=== PATIENT | male | born 1965 | race Caucasian/White ===

== ENCOUNTER 2024-02-17 11:27 | Emergency (ER) | payer MEDICAID ==
[~2024-02-17] VITALS: Ht 167.6 cm; Wt 86.2 kg
[2024-02-17] MEDS ORDERED: CEFTRIAXONE 500 MG VIAL ONE (12:27)
[2024-02-17] MEDS ORDERED: AZITHROMYCIN 250 MG TABLET ONE (12:28)
[2024-02-17] MEDS ORDERED: LIDOCAINE 1% INJ 50 ML MDV IJ ONE (12:29)
[2024-02-17] MEDS: CEFTRIAXONE 500 MG VIAL IM ONE (12:40)
[2024-02-17] MEDS: AZITHROMYCIN 250 MG TABLET PO ONE (12:40)
[2024-02-17 13:04] VITALS: BP 140/88; TEMP 98; O2SAT 95
[2024-02-19 07:06] LABS: CHLAMYDIA TRACHOMATIS NAA Negative (Negative)
[2024-02-19 11:08] LABS: NEISSERIA GONORRHOEAE NAA Positive (Negative)
== END 2024-02-17 13:07 | disposition home or self-care (01) ==
LOC: ER 11:42
DX: A54.09 Other gonococcal infection of lower genitourinary tract (principal); R30.0 Dysuria; R36.9 Urethral discharge, unspecified; E11.9 Type 2 diabetes mellitus without complications
CPT/HCPCS: 99283; 96372; 87491; 87591; J3490; J0696

== ENCOUNTER 2024-06-03 19:07 | Emergency (ER) | payer MEDICAID ==
[~2024-06-03] VITALS: Ht 172.7 cm; Wt 77.1 kg
[2024-06-03 20:44] LABS: BASOPHILS % (AUTO) 0.4 % (0.0-2.0); EOSINOPHILS # (AUTO) 0.1 K/uL (0.0-0.7); EOSINOPHILS % (AUTO) 2.2 % (0.0-6.0); HEMATOCRIT 41 % (39-51); HEMOGLOBIN 14.5 g/dL (13.5-17.5); LYMPHOCYTES # (AUTO) 0.8 K/uL (0.8-4.8); LYMPHOCYTES % (AUTO) 29.1 % (20.0-44.0); MEAN CORPUSCULAR HEMOGLOBIN 32 PG (26.0-33.0); MEAN CORPUSCULAR HGB CONC 36 g/dl (31.0-36.0); MEAN CORPUSCULAR VOLUME 89 fL (80-96); MONOCYTES # (AUTO) 0.3 K/uL (0.1-1.30); MONOCYTES % (AUTO) 11.8 % (2.0-12.0); NEUTROPHILS # (AUTO) 1.5 K/uL (1.8-8.9); NEUTROPHILS % (AUTO) 56.5 % (43.0-81.0); RED BLOOD CELL COUNT(AUTO) 4.55 MIL/uL (4.5-6.0); RED CELL DISTRIBUTION WIDTH 14.4 % (11.5-15.0); WHITE BLOOD COUNT (AUTO) 2.7 K/uL (4.3-11.0)
[2024-06-03 21:02] LABS: CALCIUM, SERUM 8.4 mg/dL (8.5-10.1); CREATININE 0.7 mg/dL (0.6-1.3); POTASSIUM 3.7 mmol/L (3.5-5.1)
[2024-06-03 21:03] LABS: APPEARANCE,URINE CLEAR (CLEAR); BILIRUBIN,URINE 1+ (NEGATIVE); BLOOD, URINE 1+ Ery/uL (NEGATIVE); COLOR,URINE DARK YELLOW (YELLOW); KETONES,URINE NEGATIVE (NEGATIVE); LEUKOCYTE ESTERASE ,URINE 1+ (NEGATIVE); NITRITE, URINE POSITIVE (NEGATIVE); PH,URINE 5.5 (5.0-8.0); PROTEIN,URINE NEGATIVE (NEGATIVE); UGLUCOSE 3+ mg/dL (NEGATIVE)
[2024-06-03 21:13] LABS: ALBUMIN 3.1 g/dL (3.4-5.0); BILIRUBIN,DIRECT 1.3 mg/dL (0.0-0.2); BILIRUBIN,TOTAL 7.1 mg/dL (0.2-1.0); TOTAL PROTEIN, SERUM 8.1 g/dL (6.4-8.2)
[2024-06-03 21:20] LABS: PLATELET COUNT (AUTO) 40 K/uL (150-450)
[2024-06-03 21:32] LABS: ADD URINE CULTURE YES; BACTERIA,URINE 1+ /HPF (None Seen)
[2024-06-03] MEDS ORDERED: PANTOPRAZOLE 40 MG VIAL ONE (21:32)
[2024-06-03 21:33] LABS: MUCUS,URINE Few /LPF (None Seen); SQUAMOUS EPITHELIAL CELL,UR 0-2 /HPF (None Seen)
[2024-06-03] MEDS: PANTOPRAZOLE 40 MG VIAL IV ONE (21:41)
[2024-06-03] MEDS ORDERED: CEFTRIAXONE 1GM BAG (ER ONLY) 50 ML IV ONE (21:47)
[2024-06-03] MEDS ORDERED: ONDANSETRON HCL/PF 4 MG/2 ML VIAL ONE (21:47)
[2024-06-03] MEDS ORDERED: MORPHINE SULFATE INJ 2 MG/ML DISP.SYRIN ONE (21:47)
[2024-06-03] MEDS: CEFTRIAXONE 1GM BAG (ER ONLY) 1 GM/50 ML PIGGYBACK IV ONE (21:54)
[2024-06-03] MEDS: MORPHINE SULFATE INJ 2 MG/ML DISP.SYRIN IV ONE (21:54)
[2024-06-03] MEDS: ONDANSETRON HCL/PF 4 MG/2 ML VIAL IVP ONE (21:55)
[2024-06-03 22:11] LABS: EOSINOPHILS % (MANUAL) 3 % (0-4); LYMPHOCYTES % (MANUAL) 34 % (16-48); MONOCYTES % (MANUAL) 8 % (0-11.0); NEUTROPHILS % (MANUAL) 55 (42-76); PLATELET ESTIMATE DECREASED
[2024-06-03 22:33] LABS: ALBUMIN 2.7 g/dL (3.4-5.0); BILIRUBIN,DIRECT 1.1 mg/dL (0.0-0.2); BILIRUBIN,TOTAL 6.3 mg/dL (0.2-1.0); TOTAL PROTEIN, SERUM 7.2 g/dL (6.4-8.2)
[2024-06-03] MEDS ORDERED: CEPH500T PO (23:38)
[2024-06-03] MEDS ORDERED: HYDR-4303 PO (23:38)
[2024-06-03 23:56] VITALS: BP 148/84; TEMP 98.6; O2SAT 99
== END 2024-06-03 23:57 | disposition home or self-care (01) ==
LOC: ER 19:10
DX: K74.60 Unspecified cirrhosis of liver (principal); N39.0 Urinary tract infection, site not specified; R10.31 Right lower quadrant pain; R10.32 Left lower quadrant pain; R10.11 Right upper quadrant pain; R10.12 Left upper quadrant pain; E11.9 Type 2 diabetes mellitus without complications
CPT/HCPCS: 99285; 96365; 96375; 93005; 71045; 74176; 85025; 80048; 83690 ×2; 80076 ×2; 85007; 81001; 36415; J2405; J2470; A4223; J2270; J0696

== ENCOUNTER 2024-06-28 08:50 | Emergency (ER) | payer MEDICAID ==
[~2024-06-28] VITALS: Ht 165.1 cm; Wt 68.0 kg
[~2024-06-28 08:50] MED LIST: CEPH500T PO; HYDR-4303 PO
[2024-06-28] MEDS ORDERED: KETOROLAC TROMETHAMINE 15 MG/ML VIAL ONE (09:56)
[2024-06-28] MEDS ORDERED: LIDOCAINE 5% (PATCH) 1 EA PATCH TP ONE (09:56)
[2024-06-28] MEDS ORDERED: HYDROCODONE/APAP 5/325MG TABLET ONE (09:57)
[2024-06-28] MEDS ORDERED: CYCLOBENZAPRINE 10 MG TABLET ONE (09:57)
[2024-06-28] MEDS: KETOROLAC TROMETHAMINE 15 MG/ML VIAL IM ONE (10:04)
[2024-06-28] MEDS: CYCLOBENZAPRINE 10 MG TABLET PO ONE (10:04)
[2024-06-28] MEDS: LIDOCAINE 5% (PATCH) 1 EA PATCH TP SCH (10:04)
[2024-06-28] MEDS: HYDROCODONE/APAP 5/325MG TABLET PO ONE (10:04)
[2024-06-28] MEDS ORDERED: CYCL5TAB PO (10:14)
[2024-06-28] MEDS ORDERED: METH4TAB17 PO (10:14)
[2024-06-28] MEDS ORDERED: LIDO30AD10 TP (10:14)
[2024-06-28] MEDS ORDERED: IBUP-1955 PO (10:14)
[2024-06-28] MEDS ORDERED: HYDR-4303 PO (10:14)
[2024-06-28 10:22] VITALS: BP 111/64; TEMP 98.6; O2SAT 98
== END 2024-06-28 10:22 | disposition home or self-care (01) ==
LOC: ER 08:53
DX: G89.29 Other chronic pain (principal); M54.59 Other low back pain; E11.9 Type 2 diabetes mellitus without complications; F10.20 Alcohol dependence, uncomplicated; Z87.19 Personal history of other diseases of the digestive system
CPT/HCPCS: 99284; 96372; J1885

== ENCOUNTER 2024-09-29 15:42 | Emergency (ER) | payer MEDICAID ==
[~2024-09-29] VITALS: Ht 165.1 cm; Wt 68.0 kg
[~2024-09-29 15:42] MED LIST changes: +CYCL5TAB PO; +IBUP-1955 PO; +LIDO30AD10 TP; +METH4TAB17 PO
[2024-09-29 16:50] LABS: BASOPHILS % (AUTO) 0.5 % (0.0-2.0); EOSINOPHILS % (AUTO) 1.2 % (0.0-6.0); HEMATOCRIT 39 % (39-51); HEMOGLOBIN 13.7 g/dL (13.5-17.5); LYMPHOCYTES # (AUTO) 0.9 K/uL (0.8-4.8); LYMPHOCYTES % (AUTO) 28.2 % (20.0-44.0); MEAN CORPUSCULAR HEMOGLOBIN 32 PG (26.0-33.0); MEAN CORPUSCULAR HGB CONC 35 g/dl (31.0-36.0); MEAN CORPUSCULAR VOLUME 90 fL (80-96); MONOCYTES # (AUTO) 0.4 K/uL (0.1-1.30); MONOCYTES % (AUTO) 12.4 % (2.0-12.0); NEUTROPHILS # (AUTO) 1.8 K/uL (1.8-8.9); NEUTROPHILS % (AUTO) 57.7 % (43.0-81.0); RED BLOOD CELL COUNT(AUTO) 4.35 MIL/uL (4.5-6.0); RED CELL DISTRIBUTION WIDTH 13.6 % (11.5-15.0); WHITE BLOOD COUNT (AUTO) 3.2 K/uL (4.3-11.0)
[2024-09-29 16:57] LABS: CALCIUM, SERUM 8.6 mg/dL (8.5-10.1); CREATININE 0.7 mg/dL (0.6-1.3); PLATELET COUNT (AUTO) 41 K/uL (150-450); POTASSIUM 3.7 mmol/L (3.5-5.1)
[2024-09-29 17:03] LABS: ALBUMIN 3.4 g/dL (3.4-5.0); BILIRUBIN,DIRECT 0.5 mg/dL (0.0-0.2); BILIRUBIN,TOTAL 3.5 mg/dL (0.2-1.0); TOTAL PROTEIN, SERUM 7.1 g/dL (6.4-8.2)
[2024-09-29] MEDS ORDERED: MAG HYDROX/AL HYDROX/SIMETH 30 ML UDC ONE (17:26)
[2024-09-29] MEDS ORDERED: LIDOCAINE VISCOUS 2% UD 15 ML UDC ONE (17:27)
[2024-09-29] MEDS ORDERED: KETOROLAC TROMETHAMINE INJ 30 MG/ML VIAL ONE (17:27)
[2024-09-29] MEDS: KETOROLAC TROMETHAMINE INJ 30 MG/ML VIAL IM ONE (17:33)
[2024-09-29] MEDS: MAG HYDROX/AL HYDROX/SIMETH 30 ML UDC PO ONE (17:33)
[2024-09-29] MEDS: LIDOCAINE VISCOUS 2% UD 15 ML UDC MM ONE (17:34)
[2024-09-29 17:35] LABS: EOSINOPHILS % (MANUAL) 2 % (0-4); LYMPHOCYTES % (MANUAL) 33 % (16-48); MONOCYTES % (MANUAL) 11 % (0-11.0); NEUTROPHILS % (MANUAL) 54 (42-76)
[2024-09-29 17:36] LABS: ANISOCYTOSIS 1+; PLATELET ESTIMATE DECREASED
[2024-09-29] MEDS ORDERED: IBUP-1955 PO (18:08)
[2024-09-29] MEDS ORDERED: PANT40TA2 PO (18:08)
[2024-09-29 18:47] VITALS: BP 150/80; TEMP 98.2; O2SAT 100
== END 2024-09-29 18:48 | disposition home or self-care (01) ==
LOC: ER 15:44
DX: G89.29 Other chronic pain (principal); M54.59 Other low back pain; D69.6 Thrombocytopenia, unspecified; E11.9 Type 2 diabetes mellitus without complications; F10.10 Alcohol abuse, uncomplicated; K70.9 Alcoholic liver disease, unspecified; K85.90 Acute pancreatitis without necrosis or infection, unspecified
CPT/HCPCS: 99283; 96372; 85025; 80048; 83690; 80076; 36415; 85007; J1885

== ENCOUNTER 2024-10-09 19:08 | Emergency (ER) | payer MEDICAID ==
[~2024-10-09 19:08] MED LIST changes: +PANT40TA2 PO
[2024-10-10] MEDS ORDERED: ONDA4TAB5 PO (12:32)
[2024-10-10] MEDS ORDERED: FAMO-131 PO (12:32)
== END 2024-10-09 20:35 | disposition left against medical advice (07) ==
LOC: ER 19:10
DX: R10.9 Unspecified abdominal pain (principal); Z53.21 Procedure and treatment not carried out due to patient leaving prior to being seen by health care provider

== ENCOUNTER 2024-10-10 09:30 | Emergency (ER) | payer MEDICAID ==
[~2024-10-10] VITALS: Ht 167.6 cm; Wt 77.1 kg
[2024-10-10] MEDS ORDERED: ONDANSETRON HCL/PF 4 MG/2 ML VIAL ONE (10:08)
[2024-10-10] MEDS ORDERED: MORPHINE SULFATE INJ 4 MG/ML DISP.SYRIN ONE (10:08)
[2024-10-10] MEDS ORDERED: LIDOCAINE VISCOUS 2% UD 15 ML UDC ONE (10:08)
[2024-10-10] MEDS ORDERED: MAG HYDROX/AL HYDROX/SIMETH 30 ML UDC ONE (10:08)
[2024-10-10] MEDS ORDERED: FAMOTIDINE/PF INJ 20 MG/2 ML VIAL IV ONE (10:09)
[2024-10-10] MEDS: LIDOCAINE VISCOUS 2% UD 15 ML UDC MM ONE (10:11)
[2024-10-10] MEDS: MAG HYDROX/AL HYDROX/SIMETH 30 ML UDC PO ONE (10:12)
[2024-10-10] MEDS: ONDANSETRON HCL/PF 4 MG/2 ML VIAL IVP ONE ×2 (10:13→10:39)
[2024-10-10] MEDS: IV NS 0.9% 500 ML BAG IV ONE (10:14)
[2024-10-10 10:15] LABS: EOSINOPHILS # (AUTO) 0.1 K/uL (0.0-0.7); LYMPHOCYTES # (AUTO) 0.8 K/uL (0.8-4.8); MONOCYTES # (AUTO) 0.4 K/uL (0.1-1.30); NEUTROPHILS # (AUTO) 1.2 K/uL (1.8-8.9)
[2024-10-10] MEDS: FAMOTIDINE/PF INJ 20 MG/2 ML VIAL IV ONE (10:17)
[2024-10-10 10:18] LABS: APPEARANCE,URINE CLEAR (CLEAR); BILIRUBIN,URINE NEGATIVE (NEGATIVE); BLOOD, URINE NEGATIVE Ery/uL (NEGATIVE); COLOR,URINE YELLOW (YELLOW); KETONES,URINE TRACE mg/dL (NEGATIVE); LEUKOCYTE ESTERASE ,URINE NEGATIVE (NEGATIVE); NITRITE, URINE NEGATIVE (NEGATIVE); PROTEIN,URINE NEGATIVE (NEGATIVE); UGLUCOSE TRACE mg/dL (NEGATIVE)
[2024-10-10] MEDS: MORPHINE SULFATE INJ 2 MG/ML DISP.SYRIN IV ONE (10:22)
[2024-10-10 10:23] LABS: HEMOGLOBIN 12.3 g/dL (13.5-17.5)
[2024-10-10 10:24] LABS: CALCIUM, SERUM 8.7 mg/dL (8.5-10.1); CREATININE 0.7 mg/dL (0.6-1.3); POTASSIUM 3.8 mmol/L (3.5-5.1)
[2024-10-10 10:29] LABS: BASOPHILS % (AUTO) 0.7 % (0.0-2.0); EOSINOPHILS % (AUTO) 3.6 % (0.0-6.0); HEMATOCRIT 35 % (39-51); MEAN CORPUSCULAR HEMOGLOBIN 31 PG (26.0-33.0); MEAN CORPUSCULAR HGB CONC 35 g/dl (31.0-36.0); MEAN CORPUSCULAR VOLUME 89 fL (80-96); MONOCYTES % (AUTO) 14.9 % (2.0-12.0); NEUTROPHILS % (AUTO) 46.8 % (43.0-81.0); RED BLOOD CELL COUNT(AUTO) 3.95 MIL/uL (4.5-6.0); RED CELL DISTRIBUTION WIDTH 14.1 % (11.5-15.0); WHITE BLOOD COUNT (AUTO) 2.5 K/uL (4.3-11.0)
[2024-10-10 10:29] LABS: ADD URINE CULTURE NO; BACTERIA,URINE Rare /HPF (None Seen); MUCUS,URINE Few /LPF (None Seen); RBC,URINE 0-2 /HPF (0-2); SQUAMOUS EPITHELIAL CELL,UR Rare /HPF (None Seen); WBC,URINE 0-2 /HPF (0-3)
[2024-10-10 10:30] LABS: URINE AMORPHOUS URATE Few /HPF (None Seen)
[2024-10-10 10:30] LABS: ALBUMIN 2.9 g/dL (3.4-5.0); BILIRUBIN,DIRECT 0.5 mg/dL (0.0-0.2); BILIRUBIN,TOTAL 1.6 mg/dL (0.2-1.0); TOTAL PROTEIN, SERUM 6.1 g/dL (6.4-8.2)
[2024-10-10 10:40] LABS: PLATELET COUNT (AUTO) 42 K/uL (150-450)
[2024-10-10 11:59] LABS: EOSINOPHILS % (MANUAL) 2 % (0-4); LYMPHOCYTES % (MANUAL) 38 % (16-48); MONOCYTES % (MANUAL) 13 % (0-11.0); NEUTROPHILS % (MANUAL) 47 (42-76); PLATELET ESTIMATE DECREASED
[2024-10-10] MEDS ORDERED: ONDA4TAB5 PO (12:32)
[2024-10-10] MEDS ORDERED: FAMO-131 PO (12:32)
[2024-10-10 13:03] VITALS: BP 128/81; TEMP 98.3; O2SAT 98
== END 2024-10-10 13:04 | disposition home or self-care (01) ==
LOC: ER 10:01
DX: K70.30 Alcoholic cirrhosis of liver without ascites (principal); D61.818 Other pancytopenia; R10.2 Pelvic and perineal pain; E11.9 Type 2 diabetes mellitus without complications; K59.00 Constipation, unspecified; K76.6 Portal hypertension; M54.9 Dorsalgia, unspecified; R30.0 Dysuria; Z79.899 Other long term (current) drug therapy
CPT/HCPCS: 99285; 74176; 96374; 96375; 85025; 80048; 83690; 80076; 81001; 36415; 85007; J2270; J3490; J2405; J7040

== ENCOUNTER 2025-02-23 12:47 | Inpatient (IN) | payer MEDICAID ==
[~2025-02-23] VITALS: Ht 165.1 cm; Wt 69.6 kg
[2025-02-23] VITALS (17 sets, daily range): BP systolic 108–126; BP diastolic 61–69; TEMP 98.7–98.8; O2SAT 99–100
[2025-02-23] MEDS: IV NS 0.9% 1,000 ML BAG IV ONE ×2 (12:45→14:00)
[~2025-02-23 12:47] MED LIST changes: +FAMO-131 PO; +ONDA4TAB5 PO
[2025-02-23] MEDS ORDERED: LORAZEPAM INJ 2 MG/ML VIAL ONE (12:56)
[2025-02-23] MEDS: ROCURONIUM BROMIDE 100 MG/10 ML VIAL IV ONE (12:57)
[2025-02-23] MEDS: ETOMIDATE 2 MG/ML VIAL IV ONE (12:57)
[2025-02-23] MEDS: LORAZEPAM INJ 2 MG/ML VIAL IV ONE (12:58)
[2025-02-23 13:17] LABS: CALCIUM, SERUM 8.4 mg/dL (8.5-10.1); CARBON DIOXIDE 29 mmol/L (21-32); CHLORIDE 107 mmol/L (98-107); CREATININE 0.5 mg/dL (0.6-1.3); GLUCOSE 193 mg/dL (74-106); POTASSIUM 3.7 mmol/L (3.5-5.1); SODIUM SERUM 141 mmol/L (136-145); UREA NITROGEN, BLOOD 9 mg/dL (7-18)
[2025-02-23 13:18] LABS: SERUM AMMONIA 92 umol/L (11-32)
[2025-02-23 13:20] LABS: APPEARANCE,URINE CLEAR (CLEAR); BILIRUBIN,URINE NEGATIVE (NEGATIVE); BLOOD, URINE 1+ Ery/uL (NEGATIVE); COLOR,URINE YELLOW (YELLOW); KETONES,URINE NEGATIVE (NEGATIVE); LEUKOCYTE ESTERASE ,URINE NEGATIVE (NEGATIVE); NITRITE, URINE NEGATIVE (NEGATIVE); PROTEIN,URINE NEGATIVE (NEGATIVE); UGLUCOSE 1+ mg/dL (NEGATIVE); UROBILINOGEN,URINE 0.2 EU/dL (0.2)
[2025-02-23] MEDS ORDERED: FENTANYL PF 100MCG/2ML AMPUL ONE (13:21)
[2025-02-23] MEDS ORDERED: MIDAZOLAM HCL 2 MG/2ML VIAL ONE (13:22)
[2025-02-23 13:23] LABS: ALANINE AMINOTRANSFERASE 19 U/L (12-78); ALBUMIN 2.8 g/dL (3.4-5.0); ALKALINE PHOSPHATASE 163 U/L (46-116); ASPARTATE AMINOTRANSFERASE 31 U/L (15-37); BASOPHILS % (AUTO) 0.3 % (0.0-2.0); BILIRUBIN,DIRECT 0.6 mg/dL (0.0-0.2); BILIRUBIN,TOTAL 1.7 mg/dL (0.2-1.0); EOSINOPHILS % (AUTO) 1.4 % (0.0-6.0); HEMATOCRIT 36 % (39-51); HEMOGLOBIN 12.4 g/dL (13.5-17.5); LYMPHOCYTES # (AUTO) 0.7 K/uL (0.8-4.8); MEAN CORPUSCULAR HEMOGLOBIN 31 PG (26.0-33.0); MEAN CORPUSCULAR HGB CONC 34 g/dl (31.0-36.0); MEAN CORPUSCULAR VOLUME 90 fL (80-96); MONOCYTES # (AUTO) 0.2 K/uL (0.1-1.30); MONOCYTES % (AUTO) 9.3 % (2.0-12.0); NEUTROPHILS # (AUTO) 1.6 K/uL (1.8-8.9); RED BLOOD CELL COUNT(AUTO) 4.03 MIL/uL (4.5-6.0); RED CELL DISTRIBUTION WIDTH 14.5 % (11.5-15.0); TOTAL PROTEIN, SERUM 7.2 g/dL (6.4-8.2); WHITE BLOOD COUNT (AUTO) 2.5 K/uL (4.3-11.0)
[2025-02-23] MEDS: MIDAZOLAM HCL 2 MG/2ML VIAL IV ONE (13:24)
[2025-02-23] MEDS: FENTANYL PF 100MCG/2ML AMPUL IV ONE (13:24)
[2025-02-23] MEDS ORDERED: KEY,NONCONTROL,TO KEEP IN PYXI 1 EA MC ONE (13:26)
[2025-02-23] MEDS: LEVETIRACETAM (500MG) 1,000 MG in IV NS 0.9% 90 ML IV SCH (13:27)
[2025-02-23 13:30] LABS: PLATELET COUNT (AUTO) 41 K/uL (150-450)
[2025-02-23 13:31] LABS: ACETAMINOPHEN <10 ug/ml (10-30); ALCOHOL, BLOOD < 3 mg/dL (0-10); SALICYLATE < 2.8 mg/dL (2.8-20.0)
[2025-02-23 13:32] LABS: BARBITURATE, URINE NEGATIVE (NEGATIVE); BENZODIAZEPINE, URINE NEGATIVE (NEGATIVE); COCCAINE, URINE NEGATIVE (NEGATIVE); OPIATE, URINE NEGATIVE (NEGATIVE); PHENCYCLIDINE SCREEN,URINE NEGATIVE (NEGATIVE)
[2025-02-23] MEDS: MIDAZOLAM HCL 100 MG in IV NS 0.9% 80 ML IV PRN ×2 (13:40→17:47)
[2025-02-23 13:42] LABS: AMPHETAMINE, URINE POSITIVE (NEGATIVE); CANNABINOID, URINE POSITIVE (NEGATIVE)
[2025-02-23 13:44] LABS: ADD URINE CULTURE YES; BACTERIA,URINE 1+ /HPF (None Seen); SQUAMOUS EPITHELIAL CELL,UR 0-2 /HPF (None Seen)
[2025-02-23] MEDS: FENTANYL CITRAT IV 2,500 MCG in IV NS 0.9% 200 ML IV PRN ×2 (13:44→17:45)
[2025-02-23 13:54] LABS: ABG BASE EXCESS -2.1 mmol/L (-2.0-3.0); ABG OXYGEN SATURATION 98.7 % (94.0-98.0); ABG PCO2 46.5 mmHg (35.0-48.0); ABG PH 7.332 (7.350-7.450); ABG PO2 155.6 mmHg (83.0-108.0); COHb 0.3 % (0.5-1.5); MetHb 0.3 % (0.0-1.5); O2Hb 98.1 % (94.0-97.0); PEEP,BG 5 cm H2O; SITE, ABG RIGHT RADIAL; VT, ABG 475 mL
[2025-02-23 13:54] LABS: LYMPHOCYTES % (MANUAL) 20 % (16-48); MONOCYTES % (MANUAL) 10 % (0-11.0); NEUTROPHILS % (MANUAL) 70 (42-76); PLATELET ESTIMATE DECREASED
[2025-02-23] MEDS: CEFEPIME 1 GM in IV D5W 50 ML IV ONE (13:55)
[2025-02-23] MEDS: NICARDIPINE IN NACL, ISO-OSM 200 ML IV PRN (14:05)
[2025-02-23] MEDS ORDERED: ETOMIDATE 2 MG/ML VIAL IV ONE (15:13)
[2025-02-23] MEDS ORDERED: PROPOFOL 100 ML ONE (15:15)
[2025-02-23] MEDS: PROPOFOL 100 ML IV PRN ×2 (15:20→17:41)
[2025-02-23] MEDS: IV NS 0.9% 500 ML BAG IV ONE (15:30)
[2025-02-23] MEDS ORDERED: Z GUARD REMEDY 4 OZ OINT TP PRN (16:00)
[2025-02-23] MEDS ORDERED: LEVETIRACETAM (500MG) 1,000 MG in IV NS 0.9% 90 ML IV SCH (16:00)
[2025-02-23] MEDS ORDERED: MAGNESIUM HYDROXIDE 30 ML UDC PO PRN (16:00)
[2025-02-23] MEDS ORDERED: MAG HYDROX/AL HYDROX/SIMETH 30 ML UDC PO PRN (16:00)
[2025-02-23] MEDS: IV NS 0.9% 1,000 ML IV SCH (16:46)
[2025-02-24] VITALS (55 sets, daily range): BP systolic 91–138; BP diastolic 55–77; TEMP 98–100; O2SAT 94–100
[2025-02-24] MEDS: LEVETIRACETAM (500MG) 1,000 MG in IV NS 0.9% 90 ML IV SCH (00:44)
[2025-02-24] MEDS: CEFEPIME 2 GM in IV D5W 100 ML IV SCH (02:07)
[2025-02-24 04:17] LABS: ABG BASE EXCESS 0.1 mmol/L (-2.0-3.0); ABG OXYGEN SATURATION 97.9 % (94.0-98.0); ABG PCO2 40.4 mmHg (35.0-48.0); ABG PH 7.406 (7.350-7.450); ABG PO2 124.6 mmHg (83.0-108.0); ABG TOTAL HEMOGLOBIN 10.5 G/dL (13.5-17.5); COHb 0.3 % (0.5-1.5); MetHb 0.1 % (0.0-1.5); O2Hb 97.5 % (94.0-97.0); PEEP,BG 5 cm H2O; SITE, ABG RIGHT RADIAL; VT, ABG 475 mL
[2025-02-24 04:30] LABS: BASOPHILS % (AUTO) 0.3 % (0.0-2.0); EOSINOPHILS # (AUTO) 0.1 K/uL (0.0-0.7); EOSINOPHILS % (AUTO) 1.5 % (0.0-6.0); HEMATOCRIT 29 % (39-51); HEMOGLOBIN 10.1 g/dL (13.5-17.5); LYMPHOCYTES # (AUTO) 0.9 K/uL (0.8-4.8); LYMPHOCYTES % (AUTO) 24.1 % (20.0-44.0); MEAN CORPUSCULAR HEMOGLOBIN 31 PG (26.0-33.0); MEAN CORPUSCULAR HGB CONC 35 g/dl (31.0-36.0); MEAN CORPUSCULAR VOLUME 89 fL (80-96); MONOCYTES # (AUTO) 0.4 K/uL (0.1-1.30); MONOCYTES % (AUTO) 11.5 % (2.0-12.0); NEUTROPHILS # (AUTO) 2.3 K/uL (1.8-8.9); NEUTROPHILS % (AUTO) 62.6 % (43.0-81.0); RED BLOOD CELL COUNT(AUTO) 3.21 MIL/uL (4.5-6.0); RED CELL DISTRIBUTION WIDTH 14.5 % (11.5-15.0); WHITE BLOOD COUNT (AUTO) 3.7 K/uL (4.3-11.0)
[2025-02-24 04:47] LABS: CALCIUM, SERUM 7.3 mg/dL (8.5-10.1); CREATININE 0.6 mg/dL (0.6-1.3); MAGNESIUM 1.4 mg/dL (1.8-2.4); PHOSPHORUS 2.3 mg/dL (2.5-4.9); POTASSIUM 3.2 mmol/L (3.5-5.1)
[2025-02-24 05:11] LABS: PLATELET COUNT (AUTO) 37 K/uL (150-450)
[2025-02-24 08:33] LABS: EOSINOPHILS % (MANUAL) 1 % (0-4); LYMPHOCYTES % (MANUAL) 12 % (16-48); MONOCYTES % (MANUAL) 3 % (0-11.0); NEUTROPHILS % (MANUAL) 84 (42-76); PLATELET ESTIMATE DECREASED
[2025-02-24] MEDS: Magnesium 1GM/D5W 100ML PREMIX 100 ML IV SCH (11:13)
[2025-02-24] MEDS: POTASSIUM CL. PREMIX PERIPHER. 50 ML IV SCH (11:14)
[2025-02-24] MEDS ORDERED: IV NS 0.9% 250 ML IV PRN (11:30)
[2025-02-24 12:22] LABS: THYROID STIMULATING HORMONE 1.68 uIU/mL (0.358-3.74)
[2025-02-25] VITALS (61 sets, daily range): BP systolic 91–150; BP diastolic 54–80; TEMP 98.3–99.5; O2SAT 86–100
[2025-02-25 05:01] LABS: BASOPHILS % (AUTO) 0.4 % (0.0-2.0); HEMATOCRIT 29 % (39-51); HEMOGLOBIN 10.2 g/dL (13.5-17.5); LYMPHOCYTES # (AUTO) 0.7 K/uL (0.8-4.8); LYMPHOCYTES % (AUTO) 19.6 % (20.0-44.0); MEAN CORPUSCULAR HEMOGLOBIN 31 PG (26.0-33.0); MEAN CORPUSCULAR HGB CONC 35 g/dl (31.0-36.0); MEAN CORPUSCULAR VOLUME 90 fL (80-96); MONOCYTES # (AUTO) 0.5 K/uL (0.1-1.30); MONOCYTES % (AUTO) 14.1 % (2.0-12.0); NEUTROPHILS # (AUTO) 2.2 K/uL (1.8-8.9); NEUTROPHILS % (AUTO) 64.9 % (43.0-81.0); RED BLOOD CELL COUNT(AUTO) 3.26 MIL/uL (4.5-6.0); RED CELL DISTRIBUTION WIDTH 14.3 % (11.5-15.0); WHITE BLOOD COUNT (AUTO) 3.4 K/uL (4.3-11.0)
[2025-02-25 05:10] LABS: PLATELET COUNT (AUTO) 34 K/uL (150-450)
[2025-02-25 05:11] LABS: ALBUMIN 1.8 g/dL (3.4-5.0); BILIRUBIN,DIRECT 0.6 mg/dL (0.0-0.2); BILIRUBIN,TOTAL 2.7 mg/dL (0.2-1.0); CALCIUM, SERUM 7.4 mg/dL (8.5-10.1); CREATININE 0.6 mg/dL (0.6-1.3); MAGNESIUM 2.2 mg/dL (1.8-2.4); POTASSIUM 3.5 mmol/L (3.5-5.1); TOTAL PROTEIN, SERUM 5.4 g/dL (6.4-8.2)
[2025-02-25 05:47] LABS: ANISOCYTOSIS 1+; BASOPHILS % (MANUAL) 0 % (0.0-2.0); EOSINOPHILS % (MANUAL) 0 % (0-4); LYMPHOCYTES % (MANUAL) 22 % (16-48); MONOCYTES % (MANUAL) 13 % (0-11.0); NEUTROPHILS % (MANUAL) 65 (42-76); PLATELET ESTIMATE DECREASED
[2025-02-25] MEDS ORDERED: JEVITY 1.2 CAL 1,000 ML BOTTLE GT PRN (10:00)
[2025-02-25] MEDS: PRECEDEX 400 MCG/100 ML BOTTLE 100 ML IV PRN ×2 (10:51→14:31)
[2025-02-25] MEDS: JEVITY 1.2 CAL 1,000 ML BOTTLE GT PRN (16:24)
[2025-02-26] VITALS (53 sets, daily range): BP systolic 105–153; BP diastolic 58–83; TEMP 97.6–99; O2SAT 98–100
[2025-02-26 04:05] LABS: BASOPHILS % (AUTO) 0.2 % (0.0-2.0); EOSINOPHILS % (AUTO) 0.9 % (0.0-6.0); HEMATOCRIT 33 % (39-51); HEMOGLOBIN 11.6 g/dL (13.5-17.5); LYMPHOCYTES # (AUTO) 0.6 K/uL (0.8-4.8); LYMPHOCYTES % (AUTO) 15.5 % (20.0-44.0); MEAN CORPUSCULAR HEMOGLOBIN 31 PG (26.0-33.0); MEAN CORPUSCULAR HGB CONC 35 g/dl (31.0-36.0); MEAN CORPUSCULAR VOLUME 89 fL (80-96); MONOCYTES # (AUTO) 0.6 K/uL (0.1-1.30); MONOCYTES % (AUTO) 15.5 % (2.0-12.0); NEUTROPHILS # (AUTO) 2.6 K/uL (1.8-8.9); NEUTROPHILS % (AUTO) 67.9 % (43.0-81.0); RED BLOOD CELL COUNT(AUTO) 3.72 MIL/uL (4.5-6.0); RED CELL DISTRIBUTION WIDTH 13.9 % (11.5-15.0); WHITE BLOOD COUNT (AUTO) 3.8 K/uL (4.3-11.0)
[2025-02-26 04:14] LABS: INR 1.29 (0.91-1.10); PROTHROMBIN TIME 13.4 SECS (9.2-11.1)
[2025-02-26 04:24] LABS: PLATELET COUNT (AUTO) 33 K/uL (150-450)
[2025-02-26 04:43] LABS: CALCIUM, SERUM 7.8 mg/dL (8.5-10.1); CREATININE 0.6 mg/dL (0.6-1.3); POTASSIUM 3.9 mmol/L (3.5-5.1)
[2025-02-26 05:15] LABS: ALBUMIN 1.8 g/dL (3.4-5.0); BILIRUBIN,DIRECT 1.3 mg/dL (0.0-0.2); BILIRUBIN,TOTAL 3.7 mg/dL (0.2-1.0); TOTAL PROTEIN, SERUM 5.8 g/dL (6.4-8.2)
[2025-02-26 05:49] LABS: LYMPHOCYTES % (MANUAL) 10 % (16-48); MONOCYTES % (MANUAL) 13 % (0-11.0); NEUTROPHILS % (MANUAL) 77 (42-76)
[2025-02-26 05:50] LABS: PLATELET ESTIMATE DECREASED
[2025-02-26 05:51] LABS: ANISOCYTOSIS 1+
[2025-02-26] MEDS: LORAZEPAM INJ 2 MG/ML VIAL IV PRN (09:00)
[2025-02-27] VITALS (35 sets, daily range): BP systolic 122–165; BP diastolic 61–86; TEMP 97–101; O2SAT 96–100
[2025-02-27 05:00] LABS: HEMATOCRIT 33 % (39-51); HEMOGLOBIN 11.5 g/dL (13.5-17.5); LYMPHOCYTES % (AUTO) 19.7 % (20.0-44.0); MEAN CORPUSCULAR HEMOGLOBIN 31 PG (26.0-33.0); MEAN CORPUSCULAR HGB CONC 35 g/dl (31.0-36.0); MEAN CORPUSCULAR VOLUME 88 fL (80-96); NEUTROPHILS % (AUTO) 63.1 % (43.0-81.0); RED CELL DISTRIBUTION WIDTH 14.1 % (11.5-15.0); WHITE BLOOD COUNT (AUTO) 4.2 K/uL (4.3-11.0)
[2025-02-27 05:01] LABS: BASOPHILS % (AUTO) 0.5 % (0.0-2.0); EOSINOPHILS # (AUTO) 0.1 K/uL (0.0-0.7); EOSINOPHILS % (AUTO) 1.3 % (0.0-6.0); LYMPHOCYTES # (AUTO) 0.8 K/uL (0.8-4.8); MONOCYTES # (AUTO) 0.7 K/uL (0.1-1.30); MONOCYTES % (AUTO) 15.4 % (2.0-12.0); NEUTROPHILS # (AUTO) 2.7 K/uL (1.8-8.9)
[2025-02-27 05:22] LABS: PLATELET COUNT (AUTO) 38 K/uL (150-450)
[2025-02-27 05:48] LABS: BASOPHILS % (MANUAL) 0 % (0.0-2.0); EOSINOPHILS % (MANUAL) 1 % (0-4); LYMPHOCYTES % (MANUAL) 21 % (16-48); MONOCYTES % (MANUAL) 14 % (0-11.0); NEUTROPHILS % (MANUAL) 64 (42-76)
[2025-02-27 05:49] LABS: ANISOCYTOSIS 1+; PLATELET ESTIMATE DECREASED
[2025-02-27 10:20] LABS: ABG BASE EXCESS -0.7 mmol/L (-2.0-3.0); ABG PCO2 30.3 mmHg (35.0-48.0); ABG TOTAL HEMOGLOBIN 11.6 G/dL (13.5-17.5); COHb 0.1 % (0.5-1.5); MetHb 0.3 % (0.0-1.5); O2Hb 97.6 % (94.0-97.0); SITE, ABG RIGHT BRACHIAL
[2025-02-27] MEDS: QUETIAPINE FUMARATE 25 MG TABLET PO PRN (14:32)
[2025-02-27] MEDS: LORAZEPAM INJ 2 MG/ML VIAL IV PRN (14:43)
[2025-02-27] MEDS: ACETAMINOPHEN 325 MG TABLET PO PRN (16:32)
[2025-02-28] VITALS (11 sets, daily range): BP systolic 98–158; BP diastolic 58–88; TEMP 98.1–98.8; O2SAT 89–100
[2025-02-28] MEDS: LACTULOSE 10 G/15 ML UDC (PYXIS) PO SCH (09:00)
[2025-02-28] MEDS: Folic acid 1 MG in IV D5W 50 ML IV SCH (10:06)
[2025-02-28] MEDS: Thiamine 100 MG in IV D5W 50 ML IV SCH (11:03)
[2025-02-28 11:16] LABS: BASOPHILS % (AUTO) 0.2 % (0.0-2.0); EOSINOPHILS % (AUTO) 0.2 % (0.0-6.0); HEMATOCRIT 29 % (39-51); HEMOGLOBIN 10.3 g/dL (13.5-17.5); LYMPHOCYTES # (AUTO) 0.6 K/uL (0.8-4.8); LYMPHOCYTES % (AUTO) 15.1 % (20.0-44.0); MEAN CORPUSCULAR HEMOGLOBIN 32 PG (26.0-33.0); MEAN CORPUSCULAR HGB CONC 36 g/dl (31.0-36.0); MEAN CORPUSCULAR VOLUME 89 fL (80-96); MONOCYTES # (AUTO) 0.5 K/uL (0.1-1.30); MONOCYTES % (AUTO) 12.9 % (2.0-12.0); NEUTROPHILS # (AUTO) 2.6 K/uL (1.8-8.9); NEUTROPHILS % (AUTO) 71.6 % (43.0-81.0); PLATELET COUNT (AUTO) 53 K/uL (150-450); WHITE BLOOD COUNT (AUTO) 3.7 K/uL (4.3-11.0)
[2025-02-28 12:24] LABS: ANISOCYTOSIS 1+; PLATELET ESTIMATE DECREASED
[2025-02-28 18:03] LABS: ALBUMIN 2.1 g/dL (3.4-5.0); BILIRUBIN,DIRECT 2.1 mg/dL (0.0-0.2); CREATININE 0.6 mg/dL (0.6-1.3); TOTAL PROTEIN, SERUM 6.1 g/dL (6.4-8.2)
[2025-02-28 18:09] LABS: POTASSIUM 2.7 mmol/L (3.5-5.1)
[2025-02-28] MEDS: POTASSIUM CHLORIDE 20 MEQ TAB.PRT.SR PO ONE (21:17)
[2025-02-28] MEDS ORDERED: DEXTROSE 50%-WATER 50 ML DISP.SYRIN IV PRN (22:30)
[2025-03-01 00:41] VITALS: BP 167/75; TEMP 99; O2SAT 96
[2025-03-01 04:00] VITALS: BP 160/79; TEMP 98.4; O2SAT 96
[2025-03-01] MEDS: BLOOD SUGAR DIAGNOSTIC 1 EACH STRIP IN SCH (06:47)
[2025-03-01] MEDS: INSULIN REGULAR, HUMAN 100 UNIT/ML 3 ML VIAL SQ PRN (06:48)
[2025-03-01 07:03] LABS: BASOPHILS % (AUTO) 0.3 % (0.0-2.0); EOSINOPHILS % (AUTO) 0.3 % (0.0-6.0); HEMATOCRIT 34 % (39-51); LYMPHOCYTES # (AUTO) 0.8 K/uL (0.8-4.8); LYMPHOCYTES % (AUTO) 13.5 % (20.0-44.0); MEAN CORPUSCULAR HEMOGLOBIN 32 PG (26.0-33.0); MEAN CORPUSCULAR HGB CONC 35 g/dl (31.0-36.0); MEAN CORPUSCULAR VOLUME 90 fL (80-96); MONOCYTES # (AUTO) 0.8 K/uL (0.1-1.30); MONOCYTES % (AUTO) 13.3 % (2.0-12.0); NEUTROPHILS # (AUTO) 4.1 K/uL (1.8-8.9); NEUTROPHILS % (AUTO) 72.6 % (43.0-81.0); PLATELET COUNT (AUTO) 65 K/uL (150-450); RED BLOOD CELL COUNT(AUTO) 3.78 MIL/uL (4.5-6.0); WHITE BLOOD COUNT (AUTO) 5.7 K/uL (4.3-11.0)
[2025-03-01 07:40] LABS: CALCIUM, SERUM 8.3 mg/dL (8.5-10.1); CREATININE 0.6 mg/dL (0.6-1.3); MAGNESIUM 1.7 mg/dL (1.8-2.4)
[2025-03-01] MEDS: MAGNESIUM OXIDE 400 MG TABLET PO ONE (10:29)
[2025-03-01] MEDS: POTASSIUM CHLORIDE 20 MEQ TAB.PRT.SR PO SCH (10:29)
[2025-03-01 13:47] LABS: LYMPHOCYTES % (MANUAL) 10 % (16-48); MONOCYTES % (MANUAL) 5 % (0-11.0); NEUTROPHILS % (MANUAL) 85 (42-76)
[2025-03-01 13:48] LABS: ANISOCYTOSIS 1+; PLATELET ESTIMATE DECREASED
[2025-03-01] MEDS: K PHOS NEUTRAL 250 MG TABLET PO ONE (16:26)
[2025-03-01 20:00] VITALS: BP 160/80; TEMP 98.2; O2SAT 98
[2025-03-02] VITALS: BP 159/88; TEMP 99.1; O2SAT 100
[2025-03-02 04:00] VITALS: BP 164/71; TEMP 99.1; O2SAT 98
[2025-03-02] MEDS: QUETIAPINE FUMARATE 25 MG TABLET PO ONE (04:20)
[2025-03-02 05:00] VITALS: BP 138/81
[2025-03-02 08:00] VITALS: BP 136/68; TEMP 98.2; O2SAT 99
[2025-03-02 08:24] LABS: BASOPHILS % (AUTO) 0.4 % (0.0-2.0); EOSINOPHILS % (AUTO) 0.8 % (0.0-6.0); HEMATOCRIT 30 % (39-51); HEMOGLOBIN 10.6 g/dL (13.5-17.5); LYMPHOCYTES # (AUTO) 0.7 K/uL (0.8-4.8); LYMPHOCYTES % (AUTO) 15.9 % (20.0-44.0); MEAN CORPUSCULAR HEMOGLOBIN 33 PG (26.0-33.0); MEAN CORPUSCULAR HGB CONC 36 g/dl (31.0-36.0); MEAN CORPUSCULAR VOLUME 92 fL (80-96); MONOCYTES # (AUTO) 0.5 K/uL (0.1-1.30); MONOCYTES % (AUTO) 11.8 % (2.0-12.0); NEUTROPHILS # (AUTO) 3.2 K/uL (1.8-8.9); NEUTROPHILS % (AUTO) 71.1 % (43.0-81.0); PLATELET COUNT (AUTO) 54 K/uL (150-450); RED BLOOD CELL COUNT(AUTO) 3.25 MIL/uL (4.5-6.0); WHITE BLOOD COUNT (AUTO) 4.5 K/uL (4.3-11.0)
[2025-03-02 09:26] LABS: CALCIUM, SERUM 7.9 mg/dL (8.5-10.1); CREATININE 0.5 mg/dL (0.6-1.3); MAGNESIUM 1.9 mg/dL (1.8-2.4); PHOSPHORUS 2.1 mg/dL (2.5-4.9); POTASSIUM 3.4 mmol/L (3.5-5.1)
[2025-03-02 10:11] LABS: ANISOCYTOSIS 1+; LYMPHOCYTES % (MANUAL) 15 % (16-48); MONOCYTES % (MANUAL) 10 % (0-11.0); NEUTROPHILS % (MANUAL) 75 (42-76); PLATELET ESTIMATE DECREASED
[2025-03-02] MEDS: POTASSIUM CHLORIDE 20 MEQ POWDER PACKET PO ONE (11:53)
[2025-03-02 16:00] VITALS: BP 158/84; TEMP 98.1; O2SAT 99
[2025-03-02] MEDS: LORAZEPAM INJ 2 MG/ML VIAL IM PRN (17:35)
[2025-03-02] MEDS: NEUTRA PHOS 1 POWD.PACKET PO ONE (17:45)
[2025-03-02 20:00] VITALS: BP 157/86; O2SAT 95
[2025-03-02] MEDS: IV NS 0.9% 1,000 ML IV PRN (20:05)
[2025-03-02] MEDS: GLUCERNA SHAKE 237 ML CAN PO SCH (22:50)
[2025-03-03] VITALS: BP 154/85; O2SAT 95
[2025-03-03 07:20] LABS: CALCIUM, SERUM 7.9 mg/dL (8.5-10.1); CREATININE 0.6 mg/dL (0.6-1.3); PHOSPHORUS 1.9 mg/dL (2.5-4.9); POTASSIUM 2.9 mmol/L (3.5-5.1)
[2025-03-03] MEDS: POTASSIUM CHLORIDE 20 MEQ TAB.PRT.SR PO ONE (09:18)
[2025-03-03] MEDS: CEFEPIME 2 GM in IV D5W 100 ML IV SCH (14:00)
[2025-03-03] MEDS: Sodium Phosphate 15 MMOL in IV NS 0.9% 245 ML IV SCH (17:58)
[2025-03-03 20:00] VITALS: BP 130/79; TEMP 98.1; O2SAT 96
[2025-03-04] VITALS (11 sets, daily range): BP systolic 139–155; BP diastolic 75–89; TEMP 99.1–100.2; O2SAT 94–97
[2025-03-04 08:22] LABS: CALCIUM, SERUM 7.9 mg/dL (8.5-10.1); CREATININE 0.6 mg/dL (0.6-1.3); POTASSIUM 2.9 mmol/L (3.5-5.1)
[2025-03-04 08:26] LABS: BASOPHILS % (AUTO) 0.4 % (0.0-2.0); EOSINOPHILS # (AUTO) 0.1 K/uL (0.0-0.7); EOSINOPHILS % (AUTO) 1.1 % (0.0-6.0); HEMATOCRIT 36 % (39-51); HEMOGLOBIN 12.7 g/dL (13.5-17.5); LYMPHOCYTES % (AUTO) 14.1 % (20.0-44.0); MEAN CORPUSCULAR HEMOGLOBIN 32 PG (26.0-33.0); MEAN CORPUSCULAR HGB CONC 36 g/dl (31.0-36.0); MEAN CORPUSCULAR VOLUME 90 fL (80-96); MONOCYTES # (AUTO) 0.8 K/uL (0.1-1.30); MONOCYTES % (AUTO) 11.7 % (2.0-12.0); NEUTROPHILS # (AUTO) 5.2 K/uL (1.8-8.9); NEUTROPHILS % (AUTO) 72.7 % (43.0-81.0); PLATELET COUNT (AUTO) 63 K/uL (150-450); RED CELL DISTRIBUTION WIDTH 14.3 % (11.5-15.0); WHITE BLOOD COUNT (AUTO) 7.1 K/uL (4.3-11.0)
[2025-03-04] MEDS: POTASSIUM CL. PREMIX PERIPHER. 50 ML IV SCH (10:33)
[2025-03-04 10:59] LABS: ANISOCYTOSIS 1+; LYMPHOCYTES % (MANUAL) 7 % (16-48); MONOCYTES % (MANUAL) 2 % (0-11.0); NEUTROPHILS % (MANUAL) 91 (42-76); PLATELET ESTIMATE DECREASED
[2025-03-05 08:00] VITALS: BP 163/85; TEMP 98.1; O2SAT 97
[2025-03-05 08:36] VITALS: BP 110/50; TEMP 98.4; O2SAT 98
[2025-03-05 08:42] LABS: CALCIUM, SERUM 7.4 mg/dL (8.5-10.1); CREATININE 0.6 mg/dL (0.6-1.3); POTASSIUM 3.3 mmol/L (3.5-5.1)
[2025-03-05] MEDS: FOLIC ACID 1 MG TABLET PO SCH (09:18)
[2025-03-05] MEDS: THIAMINE HCL 100 MG TABLET PO SCH (09:18)
[2025-03-05 10:08] LABS: FOLIC ACID 5.5 ng/mL (>3.0)
[2025-03-05] MEDS: POTASSIUM CHLORIDE 20 MEQ TAB.PRT.SR PO SCH (10:47)
[2025-03-05 16:00] VITALS: BP 168/79; TEMP 98.2; O2SAT 97
[2025-03-05 16:11] VITALS: BP 168/79; TEMP 98.2; O2SAT 97
[2025-03-05 20:00] VITALS: BP 147/96; TEMP 98.2; O2SAT 97
[2025-03-06] MEDS ORDERED: LEVETIRACETAM (500MG) 500 MG/5 ML VIAL IV ONE (00:26)
[2025-03-06 06:46] LABS: BASOPHILS % (AUTO) 0.7 % (0.0-2.0); EOSINOPHILS # (AUTO) 0.1 K/uL (0.0-0.7); EOSINOPHILS % (AUTO) 2.7 % (0.0-6.0); HEMATOCRIT 35 % (39-51); HEMOGLOBIN 12.1 g/dL (13.5-17.5); LYMPHOCYTES # (AUTO) 0.9 K/uL (0.8-4.8); LYMPHOCYTES % (AUTO) 15.7 % (20.0-44.0); MEAN CORPUSCULAR HEMOGLOBIN 31 PG (26.0-33.0); MEAN CORPUSCULAR HGB CONC 35 g/dl (31.0-36.0); MEAN CORPUSCULAR VOLUME 88 fL (80-96); MONOCYTES # (AUTO) 0.6 K/uL (0.1-1.30); MONOCYTES % (AUTO) 11.2 % (2.0-12.0); NEUTROPHILS # (AUTO) 3.8 K/uL (1.8-8.9); NEUTROPHILS % (AUTO) 69.7 % (43.0-81.0); PLATELET COUNT (AUTO) 64 K/uL (150-450); RED BLOOD CELL COUNT(AUTO) 3.98 MIL/uL (4.5-6.0); WHITE BLOOD COUNT (AUTO) 5.4 K/uL (4.3-11.0)
[2025-03-06 07:31] LABS: CALCIUM, SERUM 7.3 mg/dL (8.5-10.1); CREATININE 0.6 mg/dL (0.6-1.3); MAGNESIUM 1.7 mg/dL (1.8-2.4); PHOSPHORUS 1.7 mg/dL (2.5-4.9); POTASSIUM 3.5 mmol/L (3.5-5.1)
[2025-03-06 08:00] VITALS: BP 156/78; TEMP 99; O2SAT 97
[2025-03-06] MEDS: MAGNESIUM OXIDE 400 MG TABLET PO ONE (11:35)
[2025-03-06 14:40] LABS: EOSINOPHILS % (MANUAL) 2 % (0-4); LYMPHOCYTES % (MANUAL) 9 % (16-48); MONOCYTES % (MANUAL) 5 % (0-11.0); NEUTROPHILS % (MANUAL) 84 (42-76); PLATELET ESTIMATE DECREASED
[2025-03-06 14:41] LABS: ANISOCYTOSIS 1+
[2025-03-06 16:00] VITALS: BP 165/84; TEMP 98.8; O2SAT 97
[2025-03-06] MEDS: K PHOS NEUTRAL 250 MG TABLET PO ONE (16:18)
[2025-03-07 00:26] VITALS: BP 165/87; TEMP 98.8; O2SAT 97
[2025-03-07 02:53] VITALS: BP 160/80; TEMP 98.8; O2SAT 97
[2025-03-07 03:06] VITALS: BP 158/71; TEMP 98.8; O2SAT 97
[2025-03-07 07:02] LABS: CALCIUM, SERUM 7.6 mg/dL (8.5-10.1); CREATININE 0.5 mg/dL (0.6-1.3); MAGNESIUM 2.1 mg/dL (1.8-2.4); PHOSPHORUS 2.7 mg/dL (2.5-4.9); POTASSIUM 3.1 mmol/L (3.5-5.1)
[2025-03-07 07:18] LABS: BASOPHILS % (AUTO) 0.9 % (0.0-2.0); EOSINOPHILS # (AUTO) 0.2 K/uL (0.0-0.7); EOSINOPHILS % (AUTO) 3.4 % (0.0-6.0); HEMATOCRIT 31 % (39-51); LYMPHOCYTES # (AUTO) 0.8 K/uL (0.8-4.8); LYMPHOCYTES % (AUTO) 18.1 % (20.0-44.0); MEAN CORPUSCULAR HEMOGLOBIN 32 PG (26.0-33.0); MEAN CORPUSCULAR HGB CONC 36 g/dl (31.0-36.0); MEAN CORPUSCULAR VOLUME 91 fL (80-96); MONOCYTES # (AUTO) 0.6 K/uL (0.1-1.30); MONOCYTES % (AUTO) 12.4 % (2.0-12.0); NEUTROPHILS % (AUTO) 65.2 % (43.0-81.0); PLATELET COUNT (AUTO) 67 K/uL (150-450); RED CELL DISTRIBUTION WIDTH 15.1 % (11.5-15.0); WHITE BLOOD COUNT (AUTO) 4.6 K/uL (4.3-11.0)
[2025-03-07 08:00] VITALS: BP 145/73; TEMP 98; O2SAT 99
[2025-03-07 10:09] LABS: EOSINOPHILS % (MANUAL) 4 % (0-4); LYMPHOCYTES % (MANUAL) 17 % (16-48); MONOCYTES % (MANUAL) 3 % (0-11.0); NEUTROPHILS % (MANUAL) 76 (42-76); OVALOCYTES 1+; PLATELET ESTIMATE DECREASED
[2025-03-07] MEDS: POTASSIUM CHLORIDE 20 MEQ TAB.PRT.SR PO SCH (11:32)
[2025-03-07] MEDS: LEVETIRACETAM SOL (5 ML) 100 MG/ML UDC PO SCH (11:34)
[2025-03-07 16:00] VITALS: BP 142/73; TEMP 98.6; O2SAT 99
[2025-03-07 20:00] VITALS: BP 149/73; TEMP 98.4; O2SAT 99
[2025-03-08 07:21] LABS: ALBUMIN 1.8 g/dL (3.4-5.0); BILIRUBIN,TOTAL 2.2 mg/dL (0.2-1.0); CALCIUM, SERUM 7.5 mg/dL (8.5-10.1); CREATININE 0.4 mg/dL (0.6-1.3); MAGNESIUM 1.8 mg/dL (1.8-2.4); PHOSPHORUS 2.5 mg/dL (2.5-4.9); POTASSIUM 3.3 mmol/L (3.5-5.1)
[2025-03-08 07:22] LABS: BASOPHILS % (AUTO) 1.1 % (0.0-2.0); EOSINOPHILS # (AUTO) 0.2 K/uL (0.0-0.7); EOSINOPHILS % (AUTO) 4.6 % (0.0-6.0); HEMATOCRIT 32 % (39-51); HEMOGLOBIN 11.3 g/dL (13.5-17.5); LYMPHOCYTES # (AUTO) 0.9 K/uL (0.8-4.8); LYMPHOCYTES % (AUTO) 24.4 % (20.0-44.0); MEAN CORPUSCULAR HEMOGLOBIN 32 PG (26.0-33.0); MEAN CORPUSCULAR HGB CONC 35 g/dl (31.0-36.0); MEAN CORPUSCULAR VOLUME 91 fL (80-96); MONOCYTES # (AUTO) 0.5 K/uL (0.1-1.30); MONOCYTES % (AUTO) 14.2 % (2.0-12.0); NEUTROPHILS % (AUTO) 55.7 % (43.0-81.0); PLATELET COUNT (AUTO) 65 K/uL (150-450); RED BLOOD CELL COUNT(AUTO) 3.57 MIL/uL (4.5-6.0); RED CELL DISTRIBUTION WIDTH 16.2 % (11.5-15.0); WHITE BLOOD COUNT (AUTO) 3.7 K/uL (4.3-11.0)
[2025-03-08 08:00] VITALS: BP_SYST 126; BP_SYST 127; BP_DIAS 78; BP_DIAS 79; TEMP 99; TEMP 99.1; O2SAT 100
[2025-03-08 10:44] LABS: EOSINOPHILS % (MANUAL) 1 % (0-4); LYMPHOCYTES % (MANUAL) 18 % (16-48); MONOCYTES % (MANUAL) 10 % (0-11.0); NEUTROPHILS % (MANUAL) 71 (42-76)
[2025-03-08 10:45] LABS: ANISOCYTOSIS 1+; PLATELET ESTIMATE DECREASED
[2025-03-08] MEDS: POTASSIUM CHLORIDE 20 MEQ TAB.PRT.SR PO SCH (11:00)
[2025-03-08 18:48] VITALS: BP 145/75; TEMP 98.9; O2SAT 100
[2025-03-08] MEDS: POTASSIUM CHLORIDE 20 MEQ TAB.PRT.SR PO ONE (18:58)
[2025-03-08 20:00] VITALS: BP 148/77; TEMP 98.2; O2SAT 98
[2025-03-08] MEDS: LEVETIRACETAM (250 MG) 250 MG TABLET PO SCH (21:58)
[2025-03-09 06:50] VITALS: BP 151/84; TEMP 98.6; O2SAT 99
[2025-03-09 07:19] LABS: CALCIUM, SERUM 7.5 mg/dL (8.5-10.1); CREATININE 0.5 mg/dL (0.6-1.3); MAGNESIUM 1.8 mg/dL (1.8-2.4); PHOSPHORUS 2.4 mg/dL (2.5-4.9)
[2025-03-09 08:00] VITALS: BP 134/78; TEMP 98.2; O2SAT 98
[2025-03-09 16:00] VITALS: BP 132/76; TEMP 98.7; O2SAT 98
[2025-03-09] MEDS: K PHOS NEUTRAL 250 MG TABLET PO ONE (17:05)
[2025-03-09 21:26] VITALS: BP 138/69; TEMP 98.6; O2SAT 99
[2025-03-10] MEDS: ONDANSETRON HCL/PF 4 MG/2 ML VIAL IVP PRN (01:15)
[2025-03-10 08:00] VITALS: BP 135/82; TEMP 97.9; O2SAT 98
[2025-03-11 03:27] VITALS: BP 141/73; TEMP 98.6
[2025-03-11 08:14] VITALS: BP 137/76; TEMP 98; O2SAT 98
[2025-03-11] MEDS ORDERED: LEVE250T2 PO (10:18)
[2025-03-11] MEDS ORDERED: LACT10SO58 PO (10:18)
[2025-03-11] MEDS ORDERED: THIA100T88 PO (10:18)
[2025-03-11 16:00] VITALS: BP 140/76; TEMP 98.4; O2SAT 100
== END 2025-03-11 19:40 | DRG 812 ==
LOC: ER 12:49 → ICU 15:55 → TELE 02-28 07:42 → MED 03-03 10:43
PROVIDERS: ADMIT Internal Medicine; ATTEND Nurse Practitioner Acute Care
PROC: 5A1955Z Respiratory Ventilation, Greater than 96 Consecutive Hours (ICD-10-PCS; principal; 2025-02-23)
PROC: 0BH17EZ Insertion of Endotracheal Airway into Trachea, Via Natural or Artificial Opening (ICD-10-PCS; 2025-02-23)
PROC: 05HB33Z Insertion of Infusion Device into Right Basilic Vein, Percutaneous Approach (ICD-10-PCS; 2025-02-24)
PROC: 05HB33Z Insertion of Infusion Device into Right Basilic Vein, Percutaneous Approach (ICD-10-PCS; 2025-03-04)
DX: T43.621A Poisoning by amphetamines, accidental (unintentional), initial encounter (principal); J96.01 Acute respiratory failure with hypoxia; J69.0 Pneumonitis due to inhalation of food and vomit; G92.8 Other toxic encephalopathy; K76.82 Hepatic encephalopathy; R56.9 Unspecified convulsions; E44.0 Moderate protein-calorie malnutrition; E72.20 Disorder of urea cycle metabolism, unspecified; E11.9 Type 2 diabetes mellitus without complications; D69.59 Other secondary thrombocytopenia; Y92.89 Other specified places as the place of occurrence of the external cause; K70.9 Alcoholic liver disease, unspecified; E88.09 Other disorders of plasma-protein metabolism, not elsewhere classified; F39 Unspecified mood [affective] disorder; D64.9 Anemia, unspecified; Z78.1 Physical restraint status; Z59.71 Insufficient health insurance coverage; K74.60 Unspecified cirrhosis of liver
CPT/HCPCS: 31720; 36410; 36415; 36600; 70450-TC; 71045-TC; 76700-TC; 80048-TC; 80053-TC; 80076-TC; 81001; 82140-TC; 82607-TC; 82803-TC; 82962-TC; 83605-TC; 83690-TC; 83735-TC; 83921; 84100-TC; 84425; 84443-TC; 84478-TC; 84484-TC; 85025-TC; 85730-TC; 87040-TC; 87081-TC; 87086-TC; 92526; 92611-TC; 94002-TC; 94003-TC; 94760-TC; 94762-TC; 94799-TC; 97110-TC; 97112-TC; 97116-TC; 97530-TC; 97535-TC; 99082-TC; A4223; A9563; G0378; G0480; J0692; J1815; J1953; J2060; J2250; J2405; J3010; J3411; J3475; J3480; J3490; J7030; J7040; J7050; J7060